=== PATIENT | female | born 1965 | race Caucasian/White ===

== ENCOUNTER → 2019-09-27 | Outpatient (CLI) | payer BC ==
--- NOTE | 2019-09-27 10:02 | Diagnostic Imaging Report ---
INDICATION: Right shoulder pain. No history of trauma. FINDINGS: 3 views. Glenohumeral joints are in good alignment. Articulating surfaces are smooth. AC joint shows good alignment. Mild hypertrophic changes along the AC joint. No soft tissue calcifications are noted. There are no fractures. 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 Dictated by: Dictated on workstation # [id number]
--- NOTE | 2019-09-27 10:12 | Diagnostic Imaging Report ---
EXAMINATION: Left knee at 9:33 AM. INDICATION: Knee pain. TECHNIQUE/COMPARISON: Three views were obtained. There are no prior studies available for comparison. FINDINGS: There is no fracture, dislocation, or acute bony abnormality evident. The knee joint is well maintained. The soft tissues are unremarkable. IMPRESSION: There is no evidence for an acute bony abnormality. Dictated by: Dictated on workstation # [id number]
== END ==
LOC: RAD FS 09:16
PROVIDERS: ATTEND Nurse Practitioner
DX: M19.011 Primary osteoarthritis, right shoulder (principal); M25.562 Pain in left knee
CPT/HCPCS: 73030; 73562

== ENCOUNTER → 2019-11-07 | Outpatient (CLI) | payer BC ==
--- NOTE | 2019-11-07 13:22 | Diagnostic Imaging Report ---
PROCEDURE: CT abdomen and pelvis without contrast. TECHNIQUE: Multiple contiguous axial images were obtained through the abdomen and pelvis without the use of intravenous contrast. Auto Exposure Controls were utilized during the CT exam to meet ALARA standards for radiation dose reduction. INDICATION: Hematuria. CORRELATION STUDY: None. FINDINGS: LOWER THORAX: Clear. Very small hiatal hernia. LIVER: Unremarkable on unenhanced imaging. GALLBLADDER: Mildly distended and contains small gallstones. Does appear to be proximal gallbladder wall thickening. No bile duct dilatation. SPLEEN: Unremarkable. PANCREAS: Unremarkable. ADRENAL GLANDS: Unremarkable. KIDNEYS: No calcification. Subtle, 7 mm area in the region of decreased attenuation at the inferior pole posteriorly and laterally of the right kidney. While the ureters cannot be completely traced, no definitive ureteric calcification. Very slight prominent appearance about the right ureter compared to the left which also appears to be slightly thickened. ABDOMINAL AORTA: Unremarkable, nonaneurysmal. GASTROINTESTINAL TRACT: Stomach relatively collapsed. No small bowel obstruction. Moderate stool throughout the colon. Normal appendix. No abdominal ascites or free air. URINARY BLADDER: Relatively decompressed and therefore not well evaluated but generally unremarkable. REPRODUCTIVE: Uterus is unremarkable. Calcification of the fundal aspect may reflect a fibroid. No definitive abnormal adnexal mass lesion. OSSEOUS STRUCTURES: Mild leftward curvature lumbar spine. OTHER: None. IMPRESSION: 1. No definitive nephroureterolithiasis or obstructive uropathy. 2. There is very question of subtle lesion of the right kidney. Additionally, there is suggestion of slight asymmetric wall thickening and prominence of the proximal right ureter. Given these findings and presenting clinical symptoms of hematuria, consideration for postcontrast imaging would be recommended. 3. Gallbladder is distended with small gallstones and suggestion of mild gallbladder wall thickening. Dictated by: Dictated on workstation # [id number]
== END ==
LOC: RAD FS 12:17
PROVIDERS: ATTEND Urology
DX: K82.8 Other specified diseases of gallbladder (principal); R31.29 Other microscopic hematuria
CPT/HCPCS: 74176

== ENCOUNTER → 2019-11-15 | Outpatient (CLI) | payer BC ==
[~2019-11-15] MED LIST: CATHETER FLUSH 10 ML SYR IV PRN; HOLD METFORMIN - RECEIVED CONTRAST 20 ML VIAL IV SCH; IOHEXOL 350 MG/ML 100 ML (OMNIPAQUE 350) VIAL IV ONE; NS 100 ML (IVPB) BAG IV ONE
[2019-11-15 09:55] LABS: CREATININE SERUM 1.09 MG/DL (0.60-1.30)
--- NOTE | 2019-11-15 10:56 | Diagnostic Imaging Report ---
EXAMINATION: CT Abdomen and Pelvis with intravenous contrast. TECHNIQUE: Multiple contiguous axial images were obtained through the abdomen and pelvis after the uneventful administration of intravenous contrast. All CT scans use one or more of the following dose optimizing techniques: automated exposure control, MA and/or KvP adjustment based on a patient size and exam type, or iterative reconstruction. HISTORY: Hematuria. COMPARISON: 11/07/2019. FINDINGS: Limited views of the lower thorax are unremarkable. The liver is normal without focal lesion. There is no biliary ductal dilation. Gallbladder is normal. Pancreas is normal. Spleen is normal. Adrenal glands are normal. The kidneys are normal. There is no hydronephrosis. Urinary bladder is normal. No renal or ureteral stones are seen. Calcified fibroid is seen in the uterus. Visualized bowel is normal in caliber without obstruction or inflammation. No free fluid or air. No abdominal or pelvic lymphadenopathy. Aorta is normal in caliber without aneurysm. There are no suspicious osseus lesions. IMPRESSION: 1. No acute abnormality in the abdomen or pelvis. Dictated by: Dictated on workstation # [id number]
== END ==
LOC: RAD FS 09:19
PROVIDERS: ATTEND Urology
DX: R31.9 Hematuria, unspecified (principal)
CPT/HCPCS: 36415; 74177; 82565; 84520